=== PATIENT | male | born 1980 | race Caucasian/White ===

== ENCOUNTER 2021-10-07 12:40 | Emergency (ER) | payer BC, SELFPAY ==
[2021-10-07 13:21] VITALS: BP 181/104; PULSE 71; RESP 16; TEMP 36.8; O2SAT 96; BMI 43.9
--- NOTE | 2021-10-07 13:34 | XRR_ITS ---
PROCEDURE INFORMATION: Exam: XR Chest Exam date and time: 10/07/2021 1:34 PM Age: 40 years old Clinical indication: Cough; Additional info: Cough, congestion; Covid exposure TECHNIQUE: Imaging protocol: XR of the chest. Views: 1 view. COMPARISON: No relevant prior studies available. FINDINGS: Lungs: Poor inspiratory effort with some crowding of pulmonary markings and possible accentuation of the apparent heart size. Mild left lateral basilar atelectasis and/or pneumonia. Pleural spaces: Unremarkable. No pleural effusion. No pneumothorax. Heart/Mediastinum: See Lungs finding. Bones/joints: Mild thoracic spondylosis. XR/XR chest 1V portable [id number] IMPRESSION: Mild left lateral basilar atelectasis and/or pneumonia. Radiation Dose CTDIVOL = (mGy): DLP = (mGy-cm)
--- NOTE | 2021-10-07 15:06 | W.ED.URI ---
HPI - URI/Sore Throat General: Chief Complaint: Upper Respiratory Infection Stated Complaint: covid symp and covid test Time Seen by Provider: 10/07/21 15:06 History of Present Illness: HPI Narrative: Mr. Segal is a 40-year-old gentleman with history of obesity s/p gastric sleeve who presents to the emergency department due to concern for Covid. He has known positive sick exposures who lives with him. Symptom onset was 2 days ago and subacute. He endorses fevers, chills, generalized malaise, arthralgias, myalgias, loss of taste and smell, cough which is nonproductive, sore throat, and diarrhea. Intensity symptoms is moderate. Course has been worsening. He tested negative on Saturday however did not have symptoms at that time. No other new changes in health, exacerbating, or alleviating factors identified. Review of Systems General: Reports: 10 or more systems reviewed and unremarkable except in HPI and below Physical Exam Narrative: EXAM NARRATIVE: GENERAL/CONSTITUTIONAL -mildly ill-appearing. No acute distress. Obese Eyes - PERRL, no conjunctival injection ENMT - Atraumatic external nose and ears. Moist mucous membranes. Mild posterior pharyngeal erythema without exudate NECK - supple. trachea midline CARDIOVASCULAR - regular rate and rhythm. RESPIRATORY -diminished/coarse to auscultation bilaterally. No retractions or accessory muscle use. ABDOMEN/GI - Nontender/Nondistended. MSK - Extremities without obvious deformity or tenderness to palpation SKIN - Warm, Dry NEURO - alert and appropriately oriented. Moves all extremities equally. Course ED course: - Patient was seen and evaluated by me at bedside - Patient placed on cardiac monitors, IV access obtained - Initial evaluation notable for somewhat ill appearance as noted above, no acute distress, nontoxic. -Symptom treatment ordered - Labs notable for negative viral studies and rapid strep - Imaging notable for mild left lateral basilar atelectasis or pneumonia. Given patient's description of symptoms I still suspect viral process though atypical pneumonia cannot be ruled out and therefore will be treated - Upon serial reexamination after treatment the patient was viral syndrome and/or pneumonia - Based on patient history, evaluation, labs, and imaging as interpreted the most likely cause of the patient's condition is mildly improved - The results of ED evaluation were discussed with the patient including prescriptions and/or symptomatic cares (if applicable) including appropriate and responsible use, followup plan, and return precautions. The patient verbalized understanding and felt safe for discharge. - Patient discharged in satisfactory condition. Vital Signs: Vital signs: Vital Signs Temperature 98.3 F 10/07/21 13:21 Pulse Rate 67 10/07/21 18:18 Respiratory Rate 18 10/07/21 18:18 Blood Pressure 158/100 10/07/21 18:18 Pulse Oximetry 95 10/07/21 18:18 MDM - URI/Sore Throat Medical Records: Attestation: I reviewed the patient's medical records. Lab Data: Attestation: I reviewed the patient's lab results. Labs: Lab Results 10/07/21 10/07/21 10/07/21 15:30 15:30 15:30 Influenza Type A A g Negative (Negative) Influenza Type B A g Negative (Negative) SARS-CoV-2 RNA (RT -PCR) SARS-CoV-2 Ag (Rap id) Negative (Negative) Group A Strep Rapi d Negative (Negative) 10/07/21 17:50 Influenza Type A A g Influenza Type B A g SARS-CoV-2 RNA (RT -PCR) Not detected (NOT DETECTED) SARS-CoV-2 Ag (Rap id) Group A Strep Rapi d Discharge Plan Discharge Patient Disposition: Home Clinical Impression: Pneumonia Condition: Stable Prescriptions: New ondansetron 4 mg tablet,disintegrating 4 mg PO Q8H PRN (Reason: nausea and vomiting) 5 Days Qty: 15 RF: 0 doxycycline hyclate 100 mg tablet 100 mg PO BID 7 Days Qty: 14 RF: 0 Discharge Orders: Discharge ED (Routine); Ordered 10/07/21 Ordered By: Jean Laguna Referrals: Lindsey Nick FNP [Primary Care Provider] - Discharge Diet: Usual diet Discharge Activity: Resume usual activity Patient Instructions: Pneumonia (ED) Activity Restrictions/Additional Instructions: Thank you for visiting the emergency department. You were seen and evaluated for cough and other respiratory symptoms as well as generalized symptoms. The exact cause of your symptoms is unclear. There is evidence of pneumonia on chest x-ray, your description of symptoms is most likely viral however given appearance on x-ray you will be given a course of antibiotics. Please follow-up with your primary care provider. Please return to the emergency department for worsening symptoms or anything else that you are concerned about and feel needs emergency department evaluation. Coding Level of Care Code ED Instructional Technology Director for Edith Murillo
--- NOTE | 2021-10-07 15:12 | PC.NURSE ---
Attempted to called report to med surg again. Placed on hold for 13 minutes with no answer from staff.
[2021-10-07] MEDS: ondansetron 4 MG Tablet PO (15:59)
[2021-10-07] MEDS: ketorolac 30 mg/mL INJ IM (15:59)
[2021-10-07 16:00] VITALS: BP 182/112; PULSE 71; RESP 18; O2SAT 96
[2021-10-07 16:08] LABS: Rapid Strep A Test Negative (Negative)
[2021-10-07 16:23] LABS: Influenza A by IFA Negative (Negative); Influenza B by IFA Negative (Negative); SARS Covid-2 Antigen Negative (Negative)
[2021-10-07 17:19] VITALS: BP 177/98; PULSE 63; RESP 18; O2SAT 95
[2021-10-07 18:18] VITALS: BP 158/100; PULSE 67; RESP 18; O2SAT 95
[2021-10-10 14:02] LABS: Quest SARS-CoV-2 RNA NOT DETECTED (NOT DETECTED)
--- NOTE | 2021-10-11 08:47 | PC.NURSE ---
Patient notified of negative COVID test result.
== END 2021-10-07 18:13 | disposition home or self-care (01) ==
PROVIDERS: Emergency Provider Emergency Medicine; PCP Nurse Practitioner Family
DX: J18.9 Pneumonia, unspecified organism (principal); Z20.822 Contact with and (suspected) exposure to COVID-19
CPT/HCPCS: 71045; 87081; 87426; 87635; 87804; 87880; 96372; 99283; J1885; Q0162

== ENCOUNTER 2021-10-22 13:05 | Emergency (ER) | payer BC, SELFPAY ==
[2021-10-22 13:28] VITALS: BP 172/134; PULSE 76; RESP 20; O2SAT 97; BMI 41.5
[2021-10-22 13:31] VITALS: BP 155/105; PULSE 82; RESP 18; O2SAT 97
--- NOTE | 2021-10-22 13:42 | XRR_ITS ---
PROCEDURE INFORMATION: Exam: XR Chest Exam date and time: 10/22/2021 1:42 PM Age: 40 years old Clinical indication: Cough; Additional info: Covid TECHNIQUE: Imaging protocol: XR of the chest. Views: 1 view. COMPARISON: CR (CHEST, ) 10/07/2021 3:27 PM FINDINGS: Lungs: Unremarkable. No consolidation. Pleural spaces: Unremarkable. No pleural effusion. No pneumothorax. Heart/Mediastinum: Unremarkable. No cardiomegaly. Bones/joints: Unremarkable. XR/XR chest 1V portable [id number] IMPRESSION: No acute findings.
--- NOTE | 2021-10-22 13:44 | ED_ITS ---
HPI - COVID General: Chief Complaint: COVID symptoms Stated Complaint: covid+ Time Seen by Provider: 10/22/21 13:16 Triage information: Has fever, cough or shortness of breath . No known COVID + exposure last 14 days History of Present Illness: HPI Narrative: Patient positive for Covid. Said his blood pressure is up today and he did not take his medication because he felt bad. Sats been about 92- 94%. Said he feels achy. MD complaint: known COVID positive COVID 19 common symptoms: positive body aches; negative non-productive cough, productive cough, dyspnea, headache(s), throat pain, nasal congestion, nausea or vomiting COVID 19 other sytmptoms: negative chest pain Onset (ago): day(s) Severity: mild COVID Results: SARS-CoV-2 Antigen (Rapid) Negative (Negative) 10/07/21 15:30 10/07/21 SARS-CoV-2 RNA (RT-PCR) Not detected (NOT DETECTED) 10/07/21 17:50 10/07/21 Review of Systems Const: Reports: body aches Eyes: Denies: change in vision or blurry vision ENMT: Denies: throat pain or nasal congestion Card: Denies: chest pain or dyspnea on exertion Resp: Denies: dyspnea, productive cough or non-productive cough GI: Denies: abdominal pain, nausea or vomiting : Denies: difficulty urinating Musc: Denies: extremity pain Skin/Breast: Denies: rash Neuro: Denies: headache(s) Psych: Denies: anxiety or depression Héctor/Lymph: Denies: easy bruising Physical Exam Const: COMMON NORMALS: no acute distress, average body habitus and patient oriented x3 HENMT: COMMON NORMALS: normocephalic HEAD & SCALP: normal to inspection and normocephalic FACE & SINUS: normal facial exam Eye: COMMON NORMALS: conjunctivae normal GENERAL EYE: appearance normal, both eyes and all related structures CONJUNCTIVA: Yes conjunctivae normal Neck/C-Spine: COMMON NORMALS: no JVD Chest: COMMONS NORMALS: normal inspection of the chest Resp: COMMON NORMALS: normal respiratory effort and clear to auscultation bilaterally AUSCULTATION: clear to auscultation bilaterally Cardio: COMMON NORMALS: no JVD, regular rate and regular rhythm RATE: regular rate RHYTHM: regular rhythm GI: COMMON NORMALS: Normal to inspection, nondistended, normoactive bowel sounds present Extremity: COMMON NORMALS: normal to inspection and full ROM Neuro: COMMON NORMALS: patient oriented x3 Course Vital Signs: Vital signs: Vital Signs Pulse Rate 76 10/22/21 13:28 Respiratory Rate 20 H 10/22/21 13:28 Blood Pressure 172/134 10/22/21 13:28 Pulse Oximetry 97 10/22/21 13:28 MDM - COVID COVID Results: 2 SARS-CoV-2 Antigen (Rapid) Negative (Negative) 10/07/21 15:30 10/07/21 SARS-CoV-2 RNA (RT-PCR) Not detected (NOT DETECTED) 10/07/21 17:50 10/07/21 Coding Level of Care Code ED Stitcher Operator for Edith Murillo
[2021-10-22 13:50] VITALS: BP 155/105
[2021-10-22] MEDS: cloNIDine 0.1 mg Tablet 0.2 MG PO (13:50)
[2021-10-22 14:06] VITALS: O2SAT 97
[2021-10-22 14:55] VITALS: BP 134/95; PULSE 88; RESP 18; O2SAT 94
== END 2021-10-22 14:55 | disposition home or self-care (01) ==
PROVIDERS: Emergency Provider Nurse Practitioner Family; PCP Nurse Practitioner Family
DX: U07.1 COVID-19 (principal)
CPT/HCPCS: 71045; 99283

== ENCOUNTER 2022-08-22 12:59 | Emergency (ER) | payer BC, SELFPAY ==
[2022-08-22 13:02] VITALS: BP 169/92; PULSE 86; RESP 18; TEMP 36.9; O2SAT 95; BMI 41.0
--- NOTE | 2022-08-22 13:09 | CTR_ITS ---
PROCEDURE INFORMATION: Exam: CT Abdomen And Pelvis Without Contrast Exam date and time: 08/22/2022 4:05 PM Age: 41 years old Clinical indication: Abdominal pain; Additional info: Hernia TECHNIQUE: Imaging protocol: Computed tomography of the abdomen and pelvis without contrast. Axial, coronal and sagittal reformatted images were created and reviewed. Radiation optimization: All CT scans at this facility use at least one of these dose optimization techniques: automated exposure control; mA and/or kV adjustment per patient size (includes targeted exams where dose is matched to clinical indication); or iterative reconstruction. COMPARISON: CR XR chest 1V portable [id number] 10/22/2021 1:52 PM RADIATION DOSE METRICS: Total DLP (mGy-cm): 1439.21 FINDINGS: Diaphragm: Small hiatal hernia and mild nonspecific distal esophageal wall thickening, suggesting chronic reflux/esophagitis. Liver: Diffuse hepatic steatosis. Gallbladder and bile ducts: No radiodense gallstones. No biliary ductal dilatation. Pancreas: Unremarkable. Spleen: Unremarkable. Adrenal glands: Normal. No mass. Kidneys and ureters: Horseshoe kidney. 2 x 1.5 cm left renal cyst. No radiodense calculi. No hydronephrosis. Stomach and bowel: Status post gastric sleeve. Colonic diverticulosis without evidence of diverticulitis. No obstruction. No bowel wall thickening. No pneumatosis. Appendix: Normal. Intraperitoneal space: No free fluid. No organized fluid collection. No free air. Vasculature: Unremarkable. No aneurysm. Lymph nodes: No pathologically enlarged lymph nodes. Urinary bladder: Unremarkable as visualized. Reproductive: Unremarkable. Bones/joints: No acute osseous abnormality. Mild degenerative changes. Soft tissues: Fat-containing umbilical hernia without evidence of incarceration or obstruction. CT/CT abdomen pelvis wo con [id number] [address]PRESSION: 1[address] No CT evidence of acute intra-abdominal or pelvic pathology. 2. Fat-containing umbilical hernia without evidence of incarceration or obstruction. 3. Additional findings, as above. COMMENTS: Consistent with the [employer]'s Incidental Findings Committee white paper (J Am Jorge Radiol 2018): Any incidental renal lesion less than 1 cm or classified as too small to characterize, or any incidental cystic renal lesion characterized as simple-appearing, is likely benign. No follow-up imaging is recommended for these lesions per consensus recommendations based on imaging criteria.
[2022-08-22 14:03] LABS: Basophils % 0.5 %; Eosinophils % 0.5 %; Hematocrit 45.3 % (42.0-52.0); Hemoglobin 15.4 g/dL (11.7-16.6); Lymphocytes # 1.6 10^3/uL (0.8-4.8); Lymphocytes % 18.6 %; Mean Corpuscular Hemoglobin 30.2 pg (28.0-34.0); Mean Corpuscular Volume 88.8 fl (80-94); Mean Platelet Volume 11.2 fL (7.4-10.4); Monocytes # 1.1 10^3/uL (0.2-0.9); Monocytes % 12.6 %; Neutrophils % 67.3 %; Nucleated Red Blood Cells % 0 %; Platelet Count 231 10^3/cmm (130-400); Red Cell Distribution Width 12.6 % (12.1-15.1); White Blood Count 8.5 10^3/uL (4.0-10.0)
[2022-08-22 14:24] LABS: Alanine Aminotransferase 19 U/L (0-41); Albumin Level 4.2 g/dL (3.5-5.2); Alkaline Phosphatase 78 U/L (40-130); Anion Gap 16.5 (5-19); Aspartate Amino Transferase 19 U/L (0-40); Blood Urea Nitrogen 9 mg/dL (6-20); Carbon Dioxide 24 mmol/L (22-29); Chloride 98 mmol/L (98-107); Globulin 3.5 g/dL (1.3-4.6); Glucose 102 mg/dL (65-115); Lipase 28 U/L (13-60); Osmolality Calculated 279 mOsm/kg (285-295); Potassium 3.5 mmol/L (3.5-5.1); Sodium 135 mmol/L (136-145); Total Bilirubin 1.4 mg/dL (0.15-1.2); Total Protein 7.7 g/dL (6.6-8.7)
--- NOTE | 2022-08-22 15:42 | ED_ITS ---
HPI - Abdominal Pain General: Chief Complaint: Abdominal Pain Stated Complaint: Abd pain, N/V Time Seen by Provider: 08/22/22 15:42 Source: patient Mode of arrival: ambulatory History of Present Illness: 42-year-old male presents emergency room with complaint of abdominal pain. Is been coughing and sneezing has a pain periumbilical that began overnight has had nausea and vomiting with that initially its been persisting throughout the day he still feels very nauseous. On exam he is exquisitely tender in the periumbilical area denies any fever sweats or chills. MD elicited complaint: abdominal pain Onset (ago): hour(s) Pain Consistency: constant Location: Periumbilical Severity: moderate Quality: cramping Radiation: none Migration to: no migration Exacerbating factors: other (Palpation and reduction attempt) Relieving factors: rest Associated Symptoms: Reports bloating, change in bowel habits, GI cramping, diar dio, dyspepsia, nausea, poor appetite and vomiting; Denies anorexia, belching, change in stool character, chills, coffee ground emesis, constipation, dysuria, excessive flatus, fever(s), heartburn, hematochezia, hematuria, hematemesis, fecal incontinence, loose stools, melena and syncope Review of Systems Const: Denies: fever(s), chills, fatigue or malaise ENMT: Denies: throat pain, ear or mastoid pain, nasal discharge or nasal congestion Card: Denies: chest pain, palpitations, irregular heart rhythm, edema, swelling of feet/ankles or syncope Resp: Denies: dyspnea, productive cough or non-productive cough GI: Reports: abdominal pain, nausea, vomiting, diarrhea, bloating, GI cramping and change in bowel habits; Denies: hematemesis, coffee ground emesis, heartburn, constipation, belching, excessive flatus, fecal incontinence, change in stool character, hematochezia or melena : Denies: dysuria or hematuria Skin/Breast: Denies: rash or pruritus PFSH ED PFSH: Medical History (Updated 08/22/22 @ 16:55 by Troy Stallworth DO) No pertinent past medical history Surgical History (Updated 08/22/22 @ 16:12 by Troy Stallworth DO) No pertinent past surgical history Social History Smoking and tobacco status: never smoked Physical Exam Const: COMMON NORMALS: no acute distress GENERAL APPEARANCE: cooperative and comfortable ORIENTATION/CONSCIOUSNESS: Yes awake, Yes oriented to person, Yes oriented to place and Yes oriented to time HENMT: COMMON NORMALS: normocephalic and atraumatic HEAD & SCALP: normocephalic and atraumatic Resp: COMMON NORMALS: normal respiratory effort, No retractions, No use of accessory muscles and clear to auscultation bilaterally AUSCULTATION: clear to auscultation bilaterally Cardio: COMMON NORMALS: regular rate, regular rhythm and No murmurs present (C ardio) RATE: regular rate RHYTHM: regular rhythm GI: COMMON NORMALS: No hepatosplenomegaly present AUSCULTATION: Yes normoactive bowel sounds PALPATION: Yes Tenderness to palpation present (GI) (Umbilical hernia), No Guarding due to palpation present (GI) and Yes No hepatosplenomegaly present OTHER: Incarcerated umbilical hernia unable to reduce Extremity: COMMON NORMALS: normal to inspection, capillary refill normal, no clubbing, cyanosis or edema, no calf tenderness and no pedal edema Neuro: SENSORIUM/ORIENTATION: Yes oriented to person, Yes oriented to place and Yes oriented to time Skin: COMMON NORMALS: no rashes or lesions noted GENERAL SKIN EXAM: no rashes or lesions noted Course Vital Signs: Vital signs: Vital Signs Temperature 98.5 F 08/22/22 13:02 Pulse Rate 71 08/22/22 16:24 Respiratory Rate 22 H 08/22/22 16:21 Blood Pressure 136/90 08/22/22 16:24 Pulse Oximetry 96 08/22/22 16:24 Oxygen Delivery Me thod 08/22/22 16:24 MDM - Abdominal Pain Medical Decision Making CT shows incarcerated umbilical hernia with no evidence of bowel inclusion. There is no inflammation. Attempted to reduce initially was unable to do so was quite uncomfortable for the patient we will discharge him home avoid heavy li fting follow-up with surgery for definitive care in the future. Medical Records I reviewed the patient's medical records. Lab Data I reviewed the patient's lab results. : 08/22/22 13:56 08/22/22 13:56 Labs/Radiology: Radiology Impressions Abdomen/Pelvis CT 08/22/22 13:09 IMPRESSION: 1. No CT evidence of acute intra-abdominal or pelvic pathology. 2. Fat-containing umbilical hernia without evidence of incarceration or obstruction. 3. Additional findings, as above. COMMENTS: Consistent with the [employer]'s Incidental Findings Committee white paper (J Am Jorge Radiol 2018): Any incidental renal lesion less than 1 cm or classified as too small to characterize, or any incidental cystic renal lesion characterized as simple-appearing, is likely benign. No follow-up imaging is recommended for these lesions per consensus recommendations based on imaging criteria. Laboratory Results WBC 8.5 10^3/uL (4.0-10.0) 08/22/22 13:56 RBC 5.10 10^6/uL (4.1-5.3) 08/22/22 13:56 Hgb 15.4 g/dL (11.7-16.6) 08/22/22 13:56 Hct 45.3 % (42.0-52.0) 08/22/22 13:56 MCV 88.8 fl (80-94) 08/22/22 13:56 MCH 30.2 pg (28.0-34.0) 08/22/22 13:56 MCHC 34.0 g/dL (30.0-36.0) 08/22/22 13:56 RDW 12.6 % (12.1-15.1) 08/22/22 13:56 Plt Count 231 10^3/cmm (130-400) 08/22/22 13:56 MPV 11.2 fL (7.4-10.4) H 08/22/22 13:56 Neut % (Auto) 67.3 % 08/22/22 13:56 Lymph % (Auto) 18.6 % 08/22/22 13:56 [place] % (Auto) 12.6 % 08/22/22 13:56 Eos % (Auto) 0.5 % 08/22/22 13:56 Baso % (Auto) 0.5 % 08/22/22 13:56 Neut # (Auto) 5.70 10^3/uL (1.8-7.7) 08/22/22 13:56 Lymph # (Auto) 1.6 10^3/uL (0.8-4.8) 08/22/22 13:56 [place] # (Auto) 1.1 10^3/uL (0.2-0.9) H 08/22/22 13:56 Eos # (Auto) 0.0 10^3/uL (0.0-0.8) 08/22/22 13:56 Baso # (Auto) 0.0 10^3/uL (0.0-0.1) 08/22/22 13:56 Nucleated RBC % (auto) 0 % 08/22/22 13:56 Nucleated RBCs # 0.0 /100WBC 08/22/22 13:56 Sodium 135 mmol/L (136-145) L 08/22/22 13:56 Potassium 3.5 mmol/L (3.5-5.1) 08/22/22 13:56 Chloride 98 mmol/L (98-107) 08/22/22 13:56 Carbon Dioxide 24 mmol/L (22-29) 08/22/22 13:56 Anion Gap 16.5 (5-19) 08/22/22 13:56 BUN 9 mg/dL (6-20) 08/22/22 13:56 Creatinine 0.8 mg/dL (0.7-1.2) 08/22/22 13:56 GFR Calculation 106.0 mL/min (90-130) 08/22/22 13:56 Glucose 102 mg/dL (65-115) 08/22/22 13:56 Calculated Osmolality 279 mOsm/kg (285-295) L 08/22/22 13:56 Calcium 9.0 mg/dL (8.5-10.5) 08/22/22 13:56 Total Bilirubin 1.4 mg/dL (0.15-1.2) H 08/22/22 13:56 AST 19 U/L (0-40) 08/22/22 13:56 ALT 19 U/L (0-41) 08/22/22 13:56 Alkaline Phosphatase 78 U/L (40-130) 08/22/22 13:56 Total Protein 7.7 g/dL (6.6-8.7) 08/22/22 13:56 Albumin 4.2 g/dL (3.5-5.2) 08/22/22 13:56 Globulin 3.5 g/dL (1.3-4.6) 08/22/22 13:56 Lipase 28 U/L (13-60) 08/22/22 13:56 Discharge Plan Discharge Patient Disposition: Home Clinical Impression: Incarcerated umbilical hernia Condition: Stable Prescriptions: No Action No Known Home Medications Discharge Orders: Discharge ED (Routine); Ordered 08/22/22 Ordered By: Troy Stallworth Referrals: Lindsey Nick FNP [Primary Care Provider] - Discharge Diet: Advance as tolerated Discharge Activity: Limit activity as instructed Patient Instructions: Opioid Safety, Pain Management Activity Restrictions/Additional Instructions: Avoid exertional heavy lifting. Case management make arrangements for her to follow-up with general surgery for surgical repair of the hernia. Coding Level of Care Code ED Occupational Health Physiotherapist for [place] Fwd Exam Detailed
[2022-08-22 16:21] VITALS: RESP 22
[2022-08-22] MEDS: sodium chloride 0.9% 1,000 ML 999 ML IV (16:21)
[2022-08-22] MEDS: morphine 4 mg/mL SDV 1 mL IVP (16:21)
[2022-08-22] MEDS: ondansetron 2 mg/ML SDV 2 mL 4 MG IVP (16:22)
[2022-08-22 16:24] VITALS: BP 136/90; PULSE 71; O2SAT 96
[2022-08-22 17:00] VITALS: BP 138/82; PULSE 75; RESP 17; O2SAT 94
== END 2022-08-22 17:20 | disposition home or self-care (01) ==
PROVIDERS: Emergency Provider Family Medicine; PCP Nurse Practitioner Family
DX: K42.0 Umbilical hernia with obstruction, without gangrene (principal)
CPT/HCPCS: 36415; 74176; 80053; 83690; 85025; 96361; 96374; 96375; 99285; J2270; J2405; J7030

== ENCOUNTER 2022-12-06 09:08 | Emergency (ER) | payer BC, SELFPAY ==
[2022-12-06 09:13] VITALS: BP 178/106; PULSE 82; RESP 20; TEMP 36.9; O2SAT 95; BMI 41.4
--- NOTE | 2022-12-06 09:15 | ECG_ITS ---
[facility] Test Date: 2022-12-06 Pat Name: Wil Segal Department: Room: Gender: Male Student Development Advisor: : 1980 Requested By: Troy Tong Order Number: [id number] Lory MD: Amparo Vasquez M.D. Measurements Intervals [place] Rate: 76 P: 51 [place]: 160 QRS: 8 QRSD: 104 T: 38 QT: 378 QTc: 426 Interpretive Statements SINUS RHYTHM No previous ECG available for comparison Electronically Signed On 12-06-2022 15:59:39 TACKING MACHINE OPERATOR by Amparo Vasquez M.D. [email or web address]
[2022-12-06 09:17] VITALS: PULSE 76; RESP 16; O2SAT 94
[2022-12-06 09:30] VITALS: BP 178/100; O2SAT 91
[2022-12-06] MEDS: ondansetron 2 mg/ML SDV 2 mL 4 MG IVP (09:38)
[2022-12-06] MEDS: sodium chloride 0.9% 1,000 ML 999 ML IV ×2 (09:38→10:40)
[2022-12-06 09:53] LABS: Basophils % 0.4 %; Eosinophils # 0.3 10^3/uL (0.0-0.8); Eosinophils % 2.8 %; Hematocrit 43.7 % (42.0-52.0); Hemoglobin 14.3 g/dL (11.7-16.6); Lymphocytes # 1.9 10^3/uL (0.8-4.8); Lymphocytes % 17.4 %; Mean Corpuscular HGB Conc 32.7 g/dL (30.0-36.0); Mean Corpuscular Hemoglobin 29.5 pg (28.0-34.0); Mean Corpuscular Volume 90.3 fl (80-94); Mean Platelet Volume 11.5 fL (7.4-10.4); Monocytes # 1.5 10^3/uL (0.2-0.9); Monocytes % 13.1 %; Neutrophils # 7.34 10^3/uL (1.8-7.7); Neutrophils % 65.9 %; Nucleated Red Blood Cells % 0 %; Platelet Count 235 10^3/cmm (130-400); Red Blood Count 4.84 10^6/uL (4.1-5.3); Red Cell Distribution Width 12.8 % (12.1-15.1); White Blood Count 11.1 10^3/uL (4.0-10.0)
[2022-12-06 10:06] LABS: Alanine Aminotransferase 19 U/L (0-41); Albumin Level 3.9 g/dL (3.5-5.2); Alkaline Phosphatase 66 U/L (40-130); Blood Urea Nitrogen 12 mg/dL (6-20); Calcium 7.8 mg/dL (8.5-10.5); Carbon Dioxide 21 mmol/L (22-29); Chloride 105 mmol/L (98-107); Globulin 2.8 g/dL (1.3-4.6); Glomerular Filtration Rate 181.5 mL/min (90-130); Glucose 114 mg/dL (65-115); Lipase 23 U/L (13-60); Osmolality Calculated 289 mOsm/kg (285-295); Sodium 139 mmol/L (136-145); Total Bilirubin 1.3 mg/dL (0.15-1.2); Total Protein 6.7 g/dL (6.6-8.7)
--- NOTE | 2022-12-06 10:06 | W.ED.NAVMDI ---
HPI - Nausea/Vomiting/Diarrhea General: Chief complaint: Nausea/Vomiting/Diarrhea Stated complaint: n/v/d since saturday Time Seen by Provider: 12/06/22 09:14 Source: patient Mode of arrival: ambulatory History of Present Illness: 42-year-old male presents emergency room with persistent nausea and vomiting frequent diarrhea for the last 2 days. No fever sweats or chills been difficult time keeping fluids down his is also had similar symptoms but not as severe. He has had generalized myalgias as well no cough or shortness of breath. Denies any medic easy melena hematemesis cough cramps no dysuria urgency or frequency. No specific abdominal pain. MD elicited complaint: nausea, vomiting and diarrhea Onset (ago): minute(s) Description of vomiting: watery Description of diarrhea: watery and semi-solid Associated nausea: Yes Associated abdominal pain: No Location of pain: Diffuse Severity: moderate Quality: cramping Exacerbating factors: none Relieving factors: none Associated symtoms: Reports anorexia and nausea; Denies altered mental status, anxiety, bloating, change in vision, chest pain, cough, diaphoresis, decreased urine output, dizziness, dysuria, epistaxis, fatigue, fecal incontinence, fevers/chills, headache(s), malaise, myalgias, numbness, palpitations, rash, short of breath, syncope, tenesmus, tinnitus or weakness Review of Systems Const: Denies: fever(s), chills, fatigue, malaise or diaphoresis Eyes: Denies: change in vision ENMT: Denies: tinnitus or epistaxis Card: Denies: chest pain, palpitations or syncope Resp: Denies: dyspnea, productive cough or non-productive cough GI: Reports: abdominal pain, nausea, vomiting and diarrhea; Denies: bloating or fecal incontinence : Denies: dysuria, urinary frequency or urinary urgency Musc: Denies: back pain Skin/Breast: Denies: rash or pruritus Neuro: Denies: headache(s) or dizziness Psych: Denies: anxiety PFSH ED PFSH: Medical History (Updated 12/06/22 @ 10:59 by Troy Stallworth DO) No pertinent past medical history Surgical History (Updated 12/06/22 @ 10:10 by Troy Stallworth DO) H/O hernia repair Social History Smoking and tobacco status: never smoked Physical Exam Const: EXAM LIMITATIONS: no altered mental status GENERAL APPEARANCE: cooperative and comfortable ORIENTATION/CONSCIOUSNESS: Yes awake, Yes oriented to person, Yes oriented to place and Yes oriented to time HENMT: COMMON NORMALS: normocephalic, atraumatic and hearing grossly normal bilaterally HEAD & SCALP: normocephalic and atraumatic Resp: COMMON NORMALS: normal respiratory effort, No retractions, No use of accessory muscles and clear to auscultation bilaterally AUSCULTATION: clear to auscultation bilaterally Cardio: COMMON NORMALS: regular rate, regular rhythm and No murmurs present (Cardio) RATE: regular rate RHYTHM: regular rhythm GI: COMMON NORMALS: Soft to palpation and No hepatosplenomegaly present AUSCULTATION: Yes normoactive bowel sounds PALPATION: Yes Soft to palpation, No Tenderness to palpation present (GI), No Guarding due to palpation present (GI) and Yes No hepatosplenomegaly present Extremity: COMMON NORMALS: normal to inspection, capillary refill normal, no clubbing, cyanosis or edema, no calf tenderness and no pedal edema Neuro: SENSORIUM/ORIENTATION: Yes oriented to person, Yes oriented to place and Yes oriented to time Skin: COMMON NORMALS: no rashes or lesions noted GENERAL SKIN EXAM: no rashes or lesions noted Course Vital Signs: Vital signs: Vital Signs Temperature 98.4 F 12/06/22 09:13 Pulse Rate 90 12/06/22 11:41 Respiratory Rate 18 12/06/22 11:41 Blood Pressure 160/118 12/06/22 11:41 Pulse Oximetry 91 12/06/22 11:41 Oxygen Delivery Me thod 12/06/22 09:17 MDM - Nausea/Vomiting/Diarrhea Medical Decision Making Improved with IV fluids labs reviewed and discussed with the patient. He is mildly hypokalemic. BUN and creatinine are normal. He does have slightly elevated T bili but his transaminases are normal likely Gilbert's disease. We will discharge patient home. Clear liquid diet 24 to 48 hours antiemetics as needed follow-up primary care if not improving Medical Records I reviewed the patient's medical records. Lab Data I reviewed the patient's lab results. 12/06/22 09:30 12/06/22 09:30 Laboratory Results WBC 11.1 10^3/uL (4.0-10.0) H 12/06/22 09:30 RBC 4.84 10^6/uL (4.1-5.3) 12/06/22 09:30 Hgb 14.3 g/dL (11.7-16.6) 12/06/22 09:30 Hct 43.7 % (42.0-52.0) 12/06/22 09:30 MCV 90.3 fl (80-94) 12/06/22 09:30 MCH 29.5 pg (28.0-34.0) 12/06/22 09:30 MCHC 32.7 g/dL (30.0-36.0) 12/06/22 09:30 RDW 12.8 % (12.1-15.1) 12/06/22 09:30 Plt Count 235 10^3/cmm (130-400) 12/06/22 09:30 MPV 11.5 fL (7.4-10.4) H 12/06/22 09:30 Neut % (Auto) 65.9 % 12/06/22 09:30 Lymph % (Auto) 17.4 % 12/06/22 09:30 [place] % (Auto) 13.1 % 12/06/22 09:30 Eos % (Auto) 2.8 % 12/06/22 09:30 Baso % (Auto) 0.4 % 12/06/22 09:30 Neut # (Auto) 7.34 10^3/uL (1.8-7.7) 12/06/22 09:30 Lymph # (Auto) 1.9 10^3/uL (0.8-4.8) 12/06/22 09:30 [place] # (Auto) 1.5 10^3/uL (0.2-0.9) H 12/06/22 09:30 Eos # (Auto) 0.3 10^3/uL (0.0-0.8) 12/06/22 09:30 Baso # (Auto) 0.0 10^3/uL (0.0-0.1) 12/06/22 09:30 Nucleated RBC % (auto) 0 % 12/06/22 09:30 Nucleated RBCs # 0.0 /100WBC 12/06/22 09:30 Sodium 139 mmol/L (136-145) 12/06/22 09:30 Potassium 3.2 mmol/L (3.5-5.1) L 12/06/22 09:30 Chloride 105 mmol/L (98-107) 12/06/22 09:30 Carbon Dioxide 21 mmol/L (22-29) L 12/06/22 09:30 Anion Gap 16.2 (5-19) 12/06/22 09:30 BUN 12 mg/dL (6-20) 12/06/22 09:30 Creatinine 0.5 mg/dL (0.7-1.2) L 12/06/22 09:30 GFR Calculation 181.5 mL/min (90-130) H 12/06/22 09:30 Glucose 114 mg/dL (65-115) 12/06/22 09:30 Calculated Osmolality 289 mOsm/kg (285-295) 12/06/22 09:30 Calcium 7.8 mg/dL (8.5-10.5) L 12/06/22 09:30 Total Bilirubin 1.3 mg/dL (0.15-1.2) H 12/06/22 09:30 AST 22 U/L (0-40) 12/06/22 09:30 ALT 19 U/L (0-41) 12/06/22 09:30 Alkaline Phosphatase 66 U/L (40-130) 12/06/22 09:30 Total Protein 6.7 g/dL (6.6-8.7) 12/06/22 09:30 Albumin 3.9 g/dL (3.5-5.2) 12/06/22 09:30 Globulin 2.8 g/dL (1.3-4.6) 12/06/22 09:30 Lipase 23 U/L (13-60) 12/06/22 09:30 Discharge Plan Discharge Patient Disposition: Home Clinical Impression: Gastroenteritis, Nausea vomiting and diarrhea Condition: Stable Prescriptions: New ondansetron HCl 4 mg tablet 4 mg PO Q6H PRN (Reason: nausea and vomiting) Qty: 20 0RF Discharge Orders: Discharge ED (Routine); Ordered 12/06/22 Ordered By: Troy Stallworth Referrals: Lindsey Nick FNP [Primary Care Provider] - Discharge Diet: Clear Liquid Discharge Activity: Resume usual activity Patient Instructions: Opioid Safety, Pain Management Activity Restrictions/Additional Instructions: Patient improved with IV fluids laboratory test reviewed exam is unremarkable. We will discharge patient home with ondansetron to use as needed clinical diet for the next 2 days follow-up as needed return if is worsening problems. Coding Level of Care Code ED Tumbler Machine Operator Helper for Chg Fwd Exam Detailed
[2022-12-06 10:09] LABS: Anion Gap 16.2 (5-19); Aspartate Amino Transferase 22 U/L (0-40); Potassium 3.2 mmol/L (3.5-5.1)
[2022-12-06 11:41] VITALS: BP 160/118; PULSE 90; RESP 18; O2SAT 91
== END 2022-12-06 11:45 | disposition home or self-care (01) ==
PROVIDERS: Emergency Provider Family Medicine; PCP Nurse Practitioner Family
DX: K52.9 Noninfective gastroenteritis and colitis, unspecified (principal)
CPT/HCPCS: 80053; 83690; 85025; 93005; 96361; 96374; 99284; J2405; J7030

== ENCOUNTER 2023-12-18 01:12 | Emergency (ER) | payer BC, SELFPAY ==
[2023-12-18 01:15] VITALS: BP 147/83; PULSE 62; RESP 22; TEMP 36.4; O2SAT 96; BMI 42.5
--- NOTE | 2023-12-18 01:26 | XRR_ITS ---
PROCEDURE INFORMATION: Exam: XR Chest Exam date and time: 12/18/2023 1:30 AM Age: 43 years old Clinical indication: Dyspnea; Additional info: Shortness of breath TECHNIQUE: Imaging protocol: Radiologic exam of the chest. Views: 1 view. COMPARISON: CR XR chest 1V portable [id number] 10/22/2021 1:52 PM FINDINGS: Lungs: Low lung volumes and bronchovascular crowding could be related to portable technique. Mild dependent opacities may represent superimposition of shadows, edema, atelectasis, inflammation, or infection. No consolidation. Pleural spaces: The left costophrenic angle is obscured, similar to the prior likely related to superimposition of breast and other soft tissues. Similar but to a lesser extent findings on the right side. No large pleural effusion. No pneumothorax. Heart/Mediastinum: Mild cardiomegaly, similar to the prior. Bones/joints: Unremarkable. XR/XR chest 1V portable [id number] IMPRESSION: 1. Low lung volumes and bronchovascular crowding could be technical. 2. Mild dependent opacities may represent superimposition of shadows, atelectasis, edema, inflammation, or infection. Clinical correlation is recommended. 3. Mild cardiomegaly, similar to the prior.
[2023-12-18 01:32] LABS: Basophils # 0.1 10^3/uL (0.0-0.1); Basophils % 0.5 %; Eosinophils # 0.3 10^3/uL (0.0-0.8); Hematocrit 41.8 % (37-53); Lymphocytes # 2.6 10^3/uL (0.8-4.8); Mean Corpuscular HGB Conc 33.5 g/dL (30-55); Mean Corpuscular Hemoglobin 30.6 pg (27-33); Mean Corpuscular Volume 91.5 fl (82-101); Mean Platelet Volume 10.9 fL (7.4-10.4); Monocytes % 8.1 %; Neutrophils # 8.79 10^3/uL (1.8-7.7); Nucleated Red Blood Cells % 0 %; Platelet Count 266 10^3/cmm (157-399); Red Blood Count 4.57 10^6/uL (3.85-5.65); White Blood Count 12.77 10^3/uL (3.29-11.43)
--- NOTE | 2023-12-18 01:47 | W.ED.SOB ---
HPI - SOB/Dyspnea General: Chief Complaint: Shortness of Breath/Dyspnea Stated Complaint: sob Time Seen by Provider: 12/18/23 01:15 History of Present Illness: HPI Narrative: Patient presents to the ER for evaluation of shortness of breath. Patient stated that he woke up suddenly from sleep very short of breath and he vomited and he was still short of breath. He put a pulse ox on it read 86%. He just felt off and was very anxious after that. He presented to the ER to be checked out. On the way here his pulse ox did not rise above 90% on room air. Upon arrival here patient's breathing 22 times a minute and his pulse ox is 96% on room air. Patient denies any fever chills coughs colds overt sickness abdominal pain. Patient is not on oxygen and does not take any breathing medicines. Review of Systems General: Reports: 10 or more systems reviewed and unremarkable except in HPI and below PFSH ED PFSH: Medical History No pertinent past medical history Surgical History H/O hernia repair Social History Smoking and tobacco/nicotine status: never used tobacco/nicotine Physical Exam Const: COMMON NORMALS: no acute distress, average body habitus, patient oriented x3, no limitations, healthy appearing, alert and well nourished HENMT: COMMON NORMALS: normocephalic, atraumatic, hearing grossly normal bilaterally, external ears normal, Normal external nose present, moist oral mucous membranes and oropharynx normal HEAD & SCALP: normocephalic and atraumatic NOSE: Normal external nose present EXTERNAL EAR: Yes external ears normal Neck/C-Spine: COMMON NORMALS: full ROM, no lymphadenopathy, supple, no meningeal signs, no JVD and Thyroid normal THYROID: Thyroid normal Chest: COMMONS NORMALS: normal inspection of the chest and normal palpation of entire chest wall Resp: COMMON NORMALS: normal respiratory effort, No retractions, No use of accessory muscles and clear to auscultation bilaterally AUSCULTATION: clear to auscultation bilaterally Cardio: COMMON NORMALS: no JVD, regular rate, regular rhythm, S1 normal heart sound present, S2 normal heart sound present, No gallops present (Cardio), No clicks present (Cardio), No murmurs present (Cardio) and No rub (Cardio) RATE: regular rate RHYTHM: regular rhythm HEART SOUNDS: S1 normal heart sound present and S2 normal heart sound present GI: COMMON NORMALS: Normal to inspection, nondistended, normoactive bowel sounds present, Soft to palpation, non-tender, No hepatosplenomegaly present and no masses PALPATION: Yes Soft to palpation and Yes No hepatosplenomegaly present Neuro: COMMON NORMALS: patient oriented x3 SENSORIUM/ORIENTATION: Yes alert MENINGEAL SIGNS: Yes no meningeal signs Course Vital Signs: Vital signs: Vital Signs Temperature 97.5 F L 12/18/23 01:15 Pulse Rate 71 12/18/23 02:28 Respiratory Rate 16 12/18/23 02:28 Blood Pressure 147/83 12/18/23 01:15 Pulse Oximetry 96 12/18/23 02:28 Oxygen Delivery Me thod Room Air 12/18/23 01:15 MDM - SOB/Dyspnea Medical Decision Making Patient physical exam performed as well as lab work and chest x-ray all of which was essentially benign. During patient stay in the exam room his O2 sat stayed approximately 96% on room air with a heart rate of 88 bpm. Patient was in no acute distress. Patient will be discharged home. Differential Diagnosis Unlikely acute exacerbation of chronic obstructive airways disease, congestive heart failure, community acquired pneumonia, asthma with exacerbation or pulmonary embolism Medical Records I reviewed the patient's medical records. Lab Data I reviewed the patient's lab results. 12/18/23 01:17 12/18/23 01:17 Labs/Radiology: Radiology Impressions Chest X-Ray 12/18/23 01:26 IMPRESSION: 1. Low lung volumes and bronchovascular crowding could be technical. 2. Mild dependent opacities may represent superimposition of shadows, atelectasis, edema, inflammation, or infection. Clinical correlation is recommended. 3. Mild cardiomegaly, similar to the prior. Laboratory Results WBC 12.77 10^3/uL (3.29-11.43) H 12/18/23 01:17 RBC 4.57 10^6/uL (3.85-5.65) 12/18/23 01:17 Hgb 14.00 g/dL (11.27-16.99) 12/18/23 01:17 Hct 41.8 % (37-53) 12/18/23 01:17 MCV 91.5 fl (82-101) 12/18/23 01:17 MCH 30.6 pg (27-33) 12/18/23 01:17 MCHC 33.5 g/dL (30-55) 12/18/23 01:17 RDW 13.0 % (12.1-15.1) 12/18/23 01:17 Plt Count 266 10^3/cmm (157-399) 12/18/23 01:17 MPV 10.9 fL (7.4-10.4) H 12/18/23 01:17 Neut % (Auto) 69.0 % 12/18/23 01:17 Lymph % (Auto) 20.0 % 12/18/23 01:17 [place] % (Auto) 8.1 % 12/18/23 01:17 Eos % (Auto) 2.0 % 12/18/23 01:17 Baso % (Auto) 0.5 % 12/18/23 01:17 Neut # (Auto) 8.79 10^3/uL (1.8-7.7) H 12/18/23 01:17 Lymph # (Auto) 2.6 10^3/uL (0.8-4.8) 12/18/23 01:17 [place] # (Auto) 1.0 10^3/uL (0.2-0.9) H 12/18/23 01:17 Eos # (Auto) 0.3 10^3/uL (0.0-0.8) 12/18/23 01:17 Baso # (Auto) 0.1 10^3/uL (0.0-0.1) 12/18/23 01:17 Nucleated RBC % (auto) 0 % 12/18/23 01:17 Nucleated RBCs # 0.0 /100WBC 12/18/23 01:17 Sodium 139 mmol/L (136-145) 12/18/23 01:17 Potassium 3.8 mmol/L (3.5-5.1) 12/18/23 01:17 Chloride 103 mmol/L (98-107) 12/18/23 01:17 Carbon Dioxide 27 mmol/L (22-29) 12/18/23 01:17 Anion Gap 12.8 (5-19) 12/18/23 01:17 BUN 16 mg/dL (6-20) 12/18/23 01:17 Creatinine 0.8 mg/dL (0.7-1.2) 12/18/23 01:17 GFR Calculation 105.0 mL/min (90-130) 12/18/23 01:17 Glucose 94 mg/dL (65-115) 12/18/23 01:17 Calculated Osmolality 289 mOsm/kg (285-295) 12/18/23 01:17 Calcium 9.1 mg/dL (8.5-10.5) 12/18/23 01:17 Total Bilirubin 0.7 mg/dL (0.15-1.2) 12/18/23 01:17 AST 19 U/L (0-40) 12/18/23 01:17 ALT 19 U/L (0-41) 12/18/23 01:17 Alkaline Phosphatase 80 U/L (40-130) 12/18/23 01:17 Total Protein 7.2 g/dL (6.6-8.7) 12/18/23 01:17 Albumin 4.3 g/dL (3.5-5.2) 12/18/23 01:17 Globulin 2.9 g/dL (1.3-4.6) 12/18/23 01:17 Lipase 37 U/L (13-60) 12/18/23 01:17 All radiology interpretation(s) finalized by discharge EKG Data EKG 1: I personally reviewed and interpreted this EKG as follows: EKG Interpretation Date: 12/18/23 EKG interpretation time: 01:16 Prior EKG tracings: not available for review Interpretation: EKG showed ventricular rate 61 bpm, TN interval 163, QRS duration 95, QTc of 408, sinus rhythm, no ST-T wave changes Discharge Plan Discharge Patient Disposition: Home Clinical Impression: Shortness of breath Vomiting Qualifiers: Vomiting type: unspecified Nausea presence: unspecified Qualified Code(s): R11.10 - Vomiting, unspecified Condition: Stable Prescriptions: No Action ondansetron HCl 4 mg tablet 4 mg PO Q6H PRN (Reason: nausea and vomiting) Qty: 20 0RF Discharge Orders: Discharge ED (Routine); Ordered 12/18/23 Ordered By: Wale Dhaliwal Referrals: Lindsey Nick FNP [Primary Care Provider] - 1 week Patient Instructions: Shortness of Breath (ED), Vomiting - Adult Activity Restrictions/Additional Instructions: Your evaluation in ER including blood work and x-ray was benign. It showed no signs of reasons for your shortness of breath or vomiting. If these continue please follow-up with your family practice doctor within the next 7 to 10 days for further evaluation and treatment. Coding Level of Care Code ED Administrative Professional for Edith Murillo
[2023-12-18 01:52] LABS: Alanine Aminotransferase 19 U/L (0-41); Albumin Level 4.3 g/dL (3.5-5.2); Alkaline Phosphatase 80 U/L (40-130); Anion Gap 12.8 (5-19); Aspartate Amino Transferase 19 U/L (0-40); Blood Urea Nitrogen 16 mg/dL (6-20); Calcium 9.1 mg/dL (8.5-10.5); Carbon Dioxide 27 mmol/L (22-29); Chloride 103 mmol/L (98-107); Globulin 2.9 g/dL (1.3-4.6); Glucose 94 mg/dL (65-115); Lipase 37 U/L (13-60); Osmolality Calculated 289 mOsm/kg (285-295); Potassium 3.8 mmol/L (3.5-5.1); Sodium 139 mmol/L (136-145); Total Bilirubin 0.7 mg/dL (0.15-1.2); Total Protein 7.2 g/dL (6.6-8.7)
[2023-12-18 02:28] VITALS: PULSE 71; RESP 16; O2SAT 96
== END 2023-12-18 02:29 | disposition home or self-care (01) ==
PROVIDERS: Emergency Provider Emergency Medicine; PCP Nurse Practitioner Family
DX: R06.02 Shortness of breath (principal); R11.10 Vomiting, unspecified
CPT/HCPCS: 71045; 80053; 83690; 85025; 99284